=== PATIENT | male | born 1990 | race African-American/Black ===

== ENCOUNTER 2022-12-28 21:28 | Inpatient (IN) | payer MEDICAID ==
[~2022-12-28] VITALS: Ht 188 cm; Wt 70.3 kg
[2022-12-29 01:21] LABS: BASOPHILS % (AUTO) 0.7 % (0.0-2.0); EOSINOPHILS % (AUTO) 1.9 % (1.0-6.0); HEMATOCRIT 44.4 % (41-53); HEMOGLOBIN 14.9 g/dL (13.5-17.5); LYMPHOCYTES # (AUTO) 2.5 K/uL (1.0-4.8); LYMPHOCYTES % (AUTO) 38.9 % (22.0-44.0); MEAN CORPUSCULAR HEMOGLOBIN 30.5 pg (26.0-34.0); MEAN CORPUSCULAR HGB CONC 33.5 G/dL (31.0-37.0); MEAN CORPUSCULAR VOLUME 91 fL (80-100); MONOCYTES # (AUTO) 0.4 K/uL (0.1-1.0); MONOCYTES % (AUTO) 6.5 % (2.0-9.0); NEUTROPHILS # (AUTO) 3.3 K/uL (1.8-7.7); PLATELET COUNT (AUTO) 202 K/uL (150-450); RED BLOOD CELL COUNT(AUTO) 4.88 MIL/uL (4.50-5.90); RED CELL DISTRIBUTION WIDTH 12.7 % (11.5-14.5)
[2022-12-29 01:24] LABS: ANION GAP 13 mmol/L (8-16); CALCIUM, TOTAL 8.7 mg/dL (8.8-10.5); CARBON DIOXIDE 30 mmol/L (22-29); CHLORIDE 102 mmol/L (98-107); CREATININE 0.89 mg/dL (0.60-1.30); GLOMERULAR FILTR. RATE CALC > 60 mL/min (>60); GLUCOSE,RANDOM 89 mg/dL (70-110); POTASSIUM 3.7 mmol/L (3.5-5.1); SODIUM SERUM 145 mmol/L (136-145)
[2022-12-29 01:30] LABS: ALANINE AMINOTRANSFERASE 19 U/L (12-78); ALBUMIN 3.8 g/dL (3.4-5.0); ALKALINE PHOSPHATASE 93 U/L (46-116); ASPARTATE AMINOTRANSFERASE 19 U/L (15-37); BILIRUBIN,TOTAL 0.4 mg/dL (0.1-1.0); TOTAL PROTEIN, SERUM 6.8 g/dL (6.4-8.2)
[2022-12-29 02:16] LABS: COVID AG,FIA SOURCE NASOPHARYNGEAL
[2022-12-29] MEDS ORDERED: HALOPERIDOL LACTATE 5 MG/ML VIAL IM ONE (04:00)
[2022-12-29] MEDS ORDERED: DiphenhydrAMINE HCL 50 MG/ML VIAL IM ONE (04:00)
[2022-12-29] MEDS ORDERED: LORazepam 2 MG/ML VIAL IM ONE (04:00)
[2022-12-29 10:13] VITALS: BP 111/67; PULSE 56; RESP 18; TEMP 97.6; O2SAT 98
[2022-12-29] MEDS ORDERED: PNEUMOCOCCAL VACCINE POLYVALENT 0.5 ML VIAL [PPSV23] IM. ONE (11:45)
[2022-12-29] MEDS ORDERED: PROMETHAZINE HCL 25 MG TABLET PO PRN (15:30)
[2022-12-29] MEDS ORDERED: HydrOXYzine PAMOATE 50 MG CAPSULE PO PRN (15:30)
[2022-12-29] MEDS ORDERED: ACETAMINOPHEN 325 MG TABLET PO PRN (15:30)
[2022-12-29] MEDS ORDERED: MAG HYDROX/AL HYDROX/SIMETH ES 30 ML SUSPENSION UDCUP PO PRN (15:30)
[2022-12-29] MEDS ORDERED: LOPERAMIDE HCL 2 MG CAPSULE PO PRN (15:30)
[2022-12-29] MEDS ORDERED: MAGNESIUM HYDROXIDE SUSPENSION 30 ML UDCUP PO PRN (15:30)
[2022-12-29] MEDS ORDERED: GuaiFENesin/D-METHORPHAN [SUGAR-FREE] 200-20MG/10 ML SYRUP UDCUP PO PRN (15:30)
[2022-12-29] MEDS ORDERED: TUBERCULIN, PURIFIED PROTEIN DERIVATIVE 5 TU/0.1 ML SYRINGE ID ONE (15:30)
[2022-12-29] MEDS: THIAMINE 100 MG TABLET PO SCH (18:31)
[2022-12-29] MEDS: MELATONIN 5 MG TABLET PO SCH (20:33)
[2022-12-29] MEDS: OLANZapine 5 MG RAPDIS TABLET PO SCH (20:33)
[2022-12-30 08:02] VITALS: BP 109/59; PULSE 50; RESP 18; TEMP 97.6; O2SAT 98
[2022-12-30] MEDS: OMEGA-3/DHA/EPA/FISH OIL 1,000 MG CAPSULE PO SCH (08:31)
[2022-12-30] MEDS: NALTREXONE HCL 50 MG TABLET PO SCH (08:31)
[2022-12-30] MEDS: MULTIVITAMINS WITH MINERALS, THERAPEUTIC TABLET PO SCH (08:31)
[2022-12-30] MEDS: BuPROPion HCL XL 150 MG ER TABLET PO SCH (08:31)
[2022-12-30] MEDS: FOLIC ACID 1 MG TABLET PO SCH (08:32)
[2022-12-30] MEDS: THIAMINE 100 MG TABLET PO SCH ×2 (08:32→16:05)
[2022-12-30] MEDS ORDERED: LORazepam 2 MG/ML VIAL ONE (11:22)
[2022-12-30] MEDS ORDERED: DiphenhydrAMINE HCL 50 MG/ML VIAL ONE (11:22)
[2022-12-30] MEDS ORDERED: HALOPERIDOL LACTATE 5 MG/ML VIAL ONE (11:23)
[2022-12-30] MEDS ORDERED: HALOPERIDOL LACTATE 5 MG/ML VIAL IM ONE (11:30)
[2022-12-30] MEDS ORDERED: DiphenhydrAMINE HCL 50 MG/ML VIAL IM ONE (11:30)
[2022-12-30] MEDS ORDERED: LORazepam 2 MG/ML VIAL IM ONE (11:30)
[2022-12-30] MEDS: OLANZapine 5 MG RAPDIS TABLET PO SCH (20:49)
[2022-12-30] MEDS: MELATONIN 5 MG TABLET PO SCH (20:49)
[2022-12-30 21:23] VITALS: RESP 18
[2022-12-31 08:00] VITALS: RESP 18; TEMP 97.6
[2022-12-31] MEDS: OMEGA-3/DHA/EPA/FISH OIL 1,000 MG CAPSULE PO SCH ×2 (08:32→09:00)
[2022-12-31] MEDS: THIAMINE 100 MG TABLET PO SCH ×3 (08:32→16:29)
[2022-12-31] MEDS: FOLIC ACID 1 MG TABLET PO SCH ×2 (08:32→09:00)
[2022-12-31] MEDS: NALTREXONE HCL 50 MG TABLET PO SCH ×2 (08:32→09:00)
[2022-12-31] MEDS: MULTIVITAMINS WITH MINERALS, THERAPEUTIC TABLET PO SCH ×2 (08:32→09:00)
[2022-12-31] MEDS: BuPROPion HCL XL 150 MG ER TABLET PO SCH ×2 (08:32→09:00)
[2022-12-31 20:00] VITALS: RESP 18
[2022-12-31] MEDS ORDERED: LORazepam 2 MG/ML VIAL IM ONE (20:15)
[2022-12-31] MEDS ORDERED: HALOPERIDOL LACTATE 5 MG/ML VIAL IM ONE (20:15)
[2022-12-31] MEDS ORDERED: DiphenhydrAMINE HCL 50 MG/ML VIAL IM ONE (20:15)
[2022-12-31] MEDS: MELATONIN 5 MG TABLET PO SCH (20:48)
[2022-12-31] MEDS: OLANZapine 5 MG RAPDIS TABLET PO SCH (20:48)
[2023-01-01 08:30] VITALS: RESP 18; TEMP 97.6; O2SAT 98
[2023-01-01] MEDS: OMEGA-3/DHA/EPA/FISH OIL 1,000 MG CAPSULE PO SCH (10:36)
[2023-01-01] MEDS: THIAMINE 100 MG TABLET PO SCH ×2 (10:36→17:04)
[2023-01-01] MEDS: FOLIC ACID 1 MG TABLET PO SCH (10:36)
[2023-01-01] MEDS: NALTREXONE HCL 50 MG TABLET PO SCH (10:37)
[2023-01-01] MEDS: MULTIVITAMINS WITH MINERALS, THERAPEUTIC TABLET PO SCH (10:37)
[2023-01-01] MEDS: BuPROPion HCL XL 150 MG ER TABLET PO SCH (10:37)
[2023-01-01] MEDS: LORazepam 2 MG TABLET PO PRN (14:29)
[2023-01-01 20:30] VITALS: RESP 17
[2023-01-01] MEDS: MELATONIN 5 MG TABLET PO SCH ×2 (20:49→21:33)
[2023-01-01] MEDS: OLANZapine 5 MG RAPDIS TABLET PO SCH ×2 (20:50→21:32)
[2023-01-02 08:25] VITALS: RESP 18
[2023-01-02] MEDS: OMEGA-3/DHA/EPA/FISH OIL 1,000 MG CAPSULE PO SCH (08:50)
[2023-01-02] MEDS: NALTREXONE HCL 50 MG TABLET PO SCH (08:51)
[2023-01-02] MEDS: MULTIVITAMINS WITH MINERALS, THERAPEUTIC TABLET PO SCH (08:51)
[2023-01-02] MEDS: FOLIC ACID 1 MG TABLET PO SCH (08:51)
[2023-01-02] MEDS: BuPROPion HCL XL 150 MG ER TABLET PO SCH (08:51)
[2023-01-02] MEDS: THIAMINE 100 MG TABLET PO SCH ×2 (08:51→17:00)
[2023-01-02] MEDS: LORazepam 2 MG TABLET PO PRN (13:51)
[2023-01-02] MEDS: OLANZapine 5 MG RAPDIS TABLET PO PRN (13:51)
[2023-01-02] MEDS: MELATONIN 5 MG TABLET PO SCH (20:52)
[2023-01-03] MEDS: ZOLPIDEM TARTRATE 10 MG TABLET PO PRN (00:41)
[2023-01-03] MEDS: LORazepam 2 MG TABLET PO PRN ×3 (00:41→15:40)
[2023-01-03] MEDS: MULTIVITAMINS WITH MINERALS, THERAPEUTIC TABLET PO SCH (08:25)
[2023-01-03] MEDS: OLANZapine 5 MG RAPDIS TABLET PO PRN ×2 (08:25→15:40)
[2023-01-03] MEDS: THIAMINE 100 MG TABLET PO SCH ×2 (08:25→17:38)
[2023-01-03] MEDS: BuPROPion HCL XL 150 MG ER TABLET PO SCH (08:25)
[2023-01-03] MEDS: OMEGA-3/DHA/EPA/FISH OIL 1,000 MG CAPSULE PO SCH (08:25)
[2023-01-03] MEDS: FOLIC ACID 1 MG TABLET PO SCH (08:25)
[2023-01-03] MEDS: NALTREXONE HCL 50 MG TABLET PO SCH (08:30)
[2023-01-03 09:00] VITALS: RESP 18
[2023-01-03] MEDS: OLANZapine 5 MG TABLET PO SCH (12:15)
[2023-01-03 20:27] VITALS: BP 139/85; PULSE 72; RESP 18; TEMP 98.1; O2SAT 100
[2023-01-03] MEDS: OLANZapine 5 MG RAPDIS TABLET PO SCH (21:04)
[2023-01-03] MEDS: MELATONIN 5 MG TABLET PO SCH (21:04)
[2023-01-04] MEDS: OLANZapine 5 MG TABLET PO SCH (08:08)
[2023-01-04] MEDS: THIAMINE 100 MG TABLET PO SCH ×2 (08:08→17:06)
[2023-01-04] MEDS: NALTREXONE HCL 50 MG TABLET PO SCH (08:08)
[2023-01-04] MEDS: MULTIVITAMINS WITH MINERALS, THERAPEUTIC TABLET PO SCH (08:08)
[2023-01-04] MEDS: FOLIC ACID 1 MG TABLET PO SCH (08:08)
[2023-01-04] MEDS: BuPROPion HCL XL 150 MG ER TABLET PO SCH (08:08)
[2023-01-04] MEDS: OMEGA-3/DHA/EPA/FISH OIL 1,000 MG CAPSULE PO SCH (08:09)
[2023-01-04 09:00] VITALS: BP 148/90; PULSE 92; RESP 18; TEMP 97.8; O2SAT 98
[2023-01-04] MEDS: LORazepam 2 MG TABLET PO PRN ×3 (10:04→20:46)
[2023-01-04] MEDS: OLANZapine 5 MG RAPDIS TABLET PO PRN ×2 (14:40→20:46)
[2023-01-04 20:14] VITALS: BP 132/76; PULSE 82; RESP 18; TEMP 97.1; O2SAT 97
[2023-01-04] MEDS: ZOLPIDEM TARTRATE 10 MG TABLET PO PRN (20:18)
[2023-01-04] MEDS: MELATONIN 5 MG TABLET PO SCH (20:18)
[2023-01-04] MEDS: OLANZapine 5 MG RAPDIS TABLET PO SCH (20:19)
[2023-01-05] MEDS: OMEGA-3/DHA/EPA/FISH OIL 1,000 MG CAPSULE PO SCH (08:03)
[2023-01-05] MEDS: FOLIC ACID 1 MG TABLET PO SCH (08:03)
[2023-01-05] MEDS: OLANZapine 5 MG TABLET PO SCH (08:03)
[2023-01-05] MEDS: THIAMINE 100 MG TABLET PO SCH ×2 (08:03→17:23)
[2023-01-05] MEDS: BuPROPion HCL XL 150 MG ER TABLET PO SCH (08:03)
[2023-01-05] MEDS: LORazepam 2 MG TABLET PO PRN ×3 (08:03→18:09)
[2023-01-05] MEDS: MULTIVITAMINS WITH MINERALS, THERAPEUTIC TABLET PO SCH (08:03)
[2023-01-05] MEDS: NALTREXONE HCL 50 MG TABLET PO SCH (08:04)
[2023-01-05 09:41] VITALS: BP 157/92; PULSE 89; RESP 18; TEMP 97.8; O2SAT 97
[2023-01-05] MEDS: OLANZapine 5 MG RAPDIS TABLET PO PRN ×2 (12:32→18:09)
[2023-01-05 20:08] VITALS: BP 154/90; PULSE 98; RESP 17; TEMP 98.1; O2SAT 98
[2023-01-05] MEDS: MELATONIN 5 MG TABLET PO SCH (20:49)
[2023-01-05] MEDS: ZOLPIDEM TARTRATE 10 MG TABLET PO PRN (20:49)
[2023-01-05] MEDS: OLANZapine 5 MG RAPDIS TABLET PO SCH (20:49)
[2023-01-06] MEDS: OLANZapine 5 MG TABLET PO SCH (08:45)
[2023-01-06] MEDS: OMEGA-3/DHA/EPA/FISH OIL 1,000 MG CAPSULE PO SCH (08:45)
[2023-01-06] MEDS: THIAMINE 100 MG TABLET PO SCH ×2 (08:45→16:36)
[2023-01-06] MEDS: MULTIVITAMINS WITH MINERALS, THERAPEUTIC TABLET PO SCH (08:45)
[2023-01-06] MEDS: BuPROPion HCL XL 150 MG ER TABLET PO SCH (08:45)
[2023-01-06] MEDS: FOLIC ACID 1 MG TABLET PO SCH (08:45)
[2023-01-06] MEDS: NALTREXONE HCL 50 MG TABLET PO SCH (08:46)
[2023-01-06 08:58] VITALS: BP 139/92; PULSE 88; RESP 18; TEMP 98.2; O2SAT 97
[2023-01-06] MEDS: LORazepam 2 MG TABLET PO PRN ×2 (09:24→14:23)
[2023-01-06] MEDS: OLANZapine 5 MG RAPDIS TABLET PO PRN ×2 (11:17→16:55)
[2023-01-06] MEDS: MELATONIN 5 MG TABLET PO SCH (20:45)
[2023-01-06] MEDS: ZOLPIDEM TARTRATE 10 MG TABLET PO PRN (20:45)
[2023-01-06] MEDS: OLANZapine 5 MG RAPDIS TABLET PO SCH (20:45)
[2023-01-06 20:46] VITALS: BP 133/93; PULSE 82; RESP 18; TEMP 98.3
[2023-01-07 08:25] VITALS: BP 111/68; PULSE 86; RESP 17; TEMP 97.7; O2SAT 98
[2023-01-07] MEDS: OLANZapine 5 MG TABLET PO SCH (08:50)
[2023-01-07] MEDS: OMEGA-3/DHA/EPA/FISH OIL 1,000 MG CAPSULE PO SCH (08:50)
[2023-01-07] MEDS: THIAMINE 100 MG TABLET PO SCH ×2 (08:50→16:46)
[2023-01-07] MEDS: MULTIVITAMINS WITH MINERALS, THERAPEUTIC TABLET PO SCH (08:50)
[2023-01-07] MEDS: BuPROPion HCL XL 150 MG ER TABLET PO SCH (08:50)
[2023-01-07] MEDS: NALTREXONE HCL 50 MG TABLET PO SCH (08:50)
[2023-01-07] MEDS: DIVALPROEX SODIUM 500 MG ER TABLET PO SCH ×3 (08:50→16:46)
[2023-01-07] MEDS: FOLIC ACID 1 MG TABLET PO SCH (08:50)
[2023-01-07] MEDS: OLANZapine 5 MG RAPDIS TABLET PO PRN ×2 (12:17→16:46)
[2023-01-07] MEDS: MELATONIN 5 MG TABLET PO SCH (20:39)
[2023-01-07] MEDS: OLANZapine 5 MG RAPDIS TABLET PO SCH (20:39)
[2023-01-07] MEDS: ZOLPIDEM TARTRATE 10 MG TABLET PO PRN (21:23)
[2023-01-07 21:26] VITALS: BP 145/87; PULSE 103; RESP 18; TEMP 97.3; O2SAT 97
[2023-01-08] MEDS: FOLIC ACID 1 MG TABLET PO SCH (07:54)
[2023-01-08] MEDS: NALTREXONE HCL 50 MG TABLET PO SCH (07:54)
[2023-01-08] MEDS: THIAMINE 100 MG TABLET PO SCH (07:54)
[2023-01-08] MEDS: MULTIVITAMINS WITH MINERALS, THERAPEUTIC TABLET PO SCH (07:54)
[2023-01-08] MEDS: OLANZapine 5 MG TABLET PO SCH (07:54)
[2023-01-08] MEDS: DIVALPROEX SODIUM 500 MG ER TABLET PO SCH ×5 (07:54→16:46)
[2023-01-08] MEDS: BuPROPion HCL XL 150 MG ER TABLET PO SCH (07:54)
[2023-01-08] MEDS: OMEGA-3/DHA/EPA/FISH OIL 1,000 MG CAPSULE PO SCH (07:54)
[2023-01-08 09:02] VITALS: BP 118/70; PULSE 81; RESP 17; TEMP 97.9; O2SAT 98
[2023-01-08] MEDS: OLANZapine 5 MG RAPDIS TABLET PO PRN (12:30)
[2023-01-08] MEDS: MELATONIN 5 MG TABLET PO SCH (20:55)
[2023-01-08] MEDS: ZOLPIDEM TARTRATE 10 MG TABLET PO PRN (20:55)
[2023-01-08] MEDS: OLANZapine 5 MG RAPDIS TABLET PO SCH (20:55)
[2023-01-08 22:26] VITALS: RESP 18
[2023-01-09 08:20] VITALS: BP 135/86; PULSE 78; RESP 18; TEMP 97.6; O2SAT 98
[2023-01-09] MEDS: DIVALPROEX SODIUM 500 MG ER TABLET PO SCH ×3 (08:44→16:09)
[2023-01-09] MEDS: NALTREXONE HCL 50 MG TABLET PO SCH (08:44)
[2023-01-09] MEDS: MULTIVITAMINS WITH MINERALS, THERAPEUTIC TABLET PO SCH (08:44)
[2023-01-09] MEDS: OLANZapine 5 MG TABLET PO SCH (08:44)
[2023-01-09] MEDS: BuPROPion HCL XL 150 MG ER TABLET PO SCH (08:44)
[2023-01-09] MEDS: OMEGA-3/DHA/EPA/FISH OIL 1,000 MG CAPSULE PO SCH (08:45)
[2023-01-09] MEDS: OLANZapine 5 MG RAPDIS TABLET PO PRN (12:48)
[2023-01-09] MEDS: ZOLPIDEM TARTRATE 10 MG TABLET PO PRN (20:24)
[2023-01-09] MEDS: MELATONIN 5 MG TABLET PO SCH (20:24)
[2023-01-09] MEDS: OLANZapine 5 MG RAPDIS TABLET PO SCH (20:24)
[2023-01-09 20:34] VITALS: BP 131/81; PULSE 94; RESP 18; TEMP 97.6; O2SAT 98
[2023-01-10 08:15] VITALS: TEMP 98
[2023-01-10] MEDS: DIVALPROEX SODIUM 500 MG ER TABLET PO SCH ×4 (09:00→16:15)
[2023-01-10] MEDS: NALTREXONE HCL 50 MG TABLET PO SCH (11:37)
[2023-01-10] MEDS: MULTIVITAMINS WITH MINERALS, THERAPEUTIC TABLET PO SCH (11:37)
[2023-01-10] MEDS: OMEGA-3/DHA/EPA/FISH OIL 1,000 MG CAPSULE PO SCH (11:37)
[2023-01-10] MEDS: OLANZapine 5 MG TABLET PO SCH (11:38)
[2023-01-10] MEDS: BuPROPion HCL XL 150 MG ER TABLET PO SCH (11:38)
[2023-01-10 12:14] VITALS: BP 118/87; PULSE 87; RESP 16
[2023-01-10] MEDS: OLANZapine 5 MG RAPDIS TABLET PO PRN (16:15)
[2023-01-10] MEDS: OLANZapine 5 MG RAPDIS TABLET PO SCH (20:18)
[2023-01-10] MEDS: MELATONIN 5 MG TABLET PO SCH (20:18)
[2023-01-10 20:31] VITALS: BP 127/85; PULSE 101; RESP 18; TEMP 98.3
[2023-01-10] MEDS: ZOLPIDEM TARTRATE 10 MG TABLET PO PRN (22:51)
[2023-01-11] MEDS: OMEGA-3/DHA/EPA/FISH OIL 1,000 MG CAPSULE PO SCH (08:32)
[2023-01-11] MEDS: OLANZapine 5 MG TABLET PO SCH (08:32)
[2023-01-11] MEDS: MULTIVITAMINS WITH MINERALS, THERAPEUTIC TABLET PO SCH (08:32)
[2023-01-11] MEDS: BuPROPion HCL XL 150 MG ER TABLET PO SCH (08:32)
[2023-01-11] MEDS: DIVALPROEX SODIUM 500 MG ER TABLET PO SCH ×3 (08:33→18:05)
[2023-01-11] MEDS: NALTREXONE HCL 50 MG TABLET PO SCH (08:33)
[2023-01-11 08:39] VITALS: BP 118/78; PULSE 73; RESP 18; TEMP 97.6; O2SAT 99
[2023-01-11 20:11] VITALS: BP 120/80; PULSE 72; RESP 17; TEMP 97; O2SAT 99
[2023-01-11] MEDS: OLANZapine 5 MG RAPDIS TABLET PO SCH ×2 (20:31→22:57)
[2023-01-11] MEDS: MELATONIN 5 MG TABLET PO SCH ×2 (20:31→22:57)
[2023-01-11] MEDS: ZOLPIDEM TARTRATE 10 MG TABLET PO PRN (22:57)
[2023-01-12 08:38] VITALS: BP 122/72; PULSE 69; RESP 18; TEMP 97.7; O2SAT 97
[2023-01-12] MEDS: NALTREXONE HCL 50 MG TABLET PO SCH (11:26)
[2023-01-12] MEDS: OLANZapine 5 MG TABLET PO SCH (11:26)
[2023-01-12] MEDS: OMEGA-3/DHA/EPA/FISH OIL 1,000 MG CAPSULE PO SCH (11:26)
[2023-01-12] MEDS: DIVALPROEX SODIUM 500 MG ER TABLET PO SCH ×3 (11:26→17:58)
[2023-01-12] MEDS: MULTIVITAMINS WITH MINERALS, THERAPEUTIC TABLET PO SCH (11:26)
[2023-01-12 20:23] VITALS: RESP 18
[2023-01-12] MEDS: MELATONIN 5 MG TABLET PO SCH (20:29)
[2023-01-12] MEDS: OLANZapine 5 MG RAPDIS TABLET PO SCH (20:30)
[2023-01-13] MEDS: NALTREXONE HCL 50 MG TABLET PO SCH (10:28)
[2023-01-13] MEDS: OMEGA-3/DHA/EPA/FISH OIL 1,000 MG CAPSULE PO SCH (10:28)
[2023-01-13] MEDS: MULTIVITAMINS WITH MINERALS, THERAPEUTIC TABLET PO SCH (10:28)
[2023-01-13] MEDS: DIVALPROEX SODIUM 500 MG ER TABLET PO SCH ×3 (10:28→17:40)
[2023-01-13] MEDS: OLANZapine 5 MG TABLET PO SCH (10:28)
[2023-01-13] MEDS: BuPROPion HCL XL 150 MG ER TABLET PO SCH (10:28)
[2023-01-13 10:38] VITALS: BP 136/88; PULSE 99; RESP 18; TEMP 97.3
[2023-01-13 20:08] VITALS: BP 136/88; PULSE 73; RESP 18; TEMP 98; O2SAT 97
[2023-01-13] MEDS ORDERED: NALT50TA PO (20:20)
[2023-01-13] MEDS ORDERED: BUPR-49 PO (20:20)
[2023-01-13] MEDS ORDERED: OLAN5TAB52 PO (20:20)
[2023-01-13] MEDS ORDERED: DIVA500T69 PO (20:20)
[2023-01-13] MEDS ORDERED: OMEG-135 PO (20:20)
[2023-01-13] MEDS ORDERED: MELA5TAB40 PO (20:20)
[2023-01-13] MEDS ORDERED: OLAN5TAB94 PO (20:20)
[2023-01-13] MEDS: MELATONIN 5 MG TABLET PO SCH (20:36)
[2023-01-13] MEDS: OLANZapine 5 MG RAPDIS TABLET PO SCH (20:36)
[2023-01-14 08:40] VITALS: BP 130/81; PULSE 79; RESP 18; TEMP 97.7; O2SAT 97
[2023-01-14] MEDS: OMEGA-3/DHA/EPA/FISH OIL 1,000 MG CAPSULE PO SCH (09:00)
[2023-01-14] MEDS: NALTREXONE HCL 50 MG TABLET PO SCH (09:00)
[2023-01-14] MEDS: DIVALPROEX SODIUM 500 MG ER TABLET PO SCH (09:00)
[2023-01-14] MEDS: OLANZapine 5 MG TABLET PO SCH (09:00)
[2023-01-14] MEDS: BuPROPion HCL XL 150 MG ER TABLET PO SCH (09:00)
[2023-01-14] MEDS: MULTIVITAMINS WITH MINERALS, THERAPEUTIC TABLET PO SCH (09:00)
== END 2023-01-14 15:45 | disposition home or self-care (01) | DRG 751 ==
LOC: EMS 21:34 → B2S 12-29 03:00 → UNDOADMIN 12-29 03:00 → 3EC 12-29 09:03
PROVIDERS: ADMIT Psychiatry & Neurology Psychiatry; ATTEND Psychiatry & Neurology Psychiatry
DX: F33.3 Major depressive disorder, recurrent, severe with psychotic symptoms (principal); R45.851 Suicidal ideations; Z91.148 Patient's other noncompliance with medication regimen for other reason; Z20.822 Contact with and (suspected) exposure to COVID-19; J44.9 Chronic obstructive pulmonary disease, unspecified; F19.20 Other psychoactive substance dependence, uncomplicated; F17.200 Nicotine dependence, unspecified, uncomplicated; F41.9 Anxiety disorder, unspecified; Z59.00 Homelessness unspecified
CPT/HCPCS: 80053; 80164; 85025; 99291; G0480; J1200; J1630; J2060; Q9967